=== PATIENT | female | born 1980 | race Two or more races ===

== ENCOUNTER 2024-08-06 21:06 | Emergency (ER) | payer OTHER, MEDICAID ==
[~2024-08-06] VITALS: Ht 165.1 cm; Wt 63.6 kg
--- NOTE | 2024-08-06 21:45 | ED.PDOC ---
Psychiatric HPI Comments 43 Y F ASHLEIGH with PMHX of schizophrenia, depression, and bipolar disorder presents to the ED with CC of hallucinations. Per EMS, patient [place] following a call from SO due to patient having visual and auditory hallucinations. Per EMS, patient states that she "saw her daughter ". Patient was previously seen at [facility] in [place], [place] for similar symptoms. Patient denies SI or HI. Chief Complaint: Hallucinations Time Seen by MD: 21:30 Reviewed Notes: Nurses Notes, Toddler Lead Teacher Notes, Medications, Allergies Information Source: Patient Mode of Arrival: EMS Severity: Unable to Control Self Severity of Pain: None Severity of Mental Status: None Severity of Symptoms: None Timing: Hours Duration: Since onset Prehospital treatment: None Presents with: Unclear Thinking Ingestion: None Circumstance: None Current substance abuse: None Stressors: None History of: Depression, Schizophrenia Quality: Hallucinations Location: None Associated signs and symptoms: Hallucinations Past Medical History PAST MEDICAL HISTORY: Depression, Schizophrenia Past Medical History (Other): BIPOLAR DISORDER Surgical History: Denies all surgeries STEVEDORING SUPERINTENDENT History: Denies all STEVEDORING SUPERINTENDENT Hx Family History Family History: Unknown Social History Smoker: Non-Smoker Alcohol: Denies ETOH Use Drugs: Denies Drug Use Lives In: Home Unable to Obtain due to: Altered Mental Status Physical Exam General Appearance: No Apparent Distress, Normal HEENT: Normal ENT Inspection, Pharynx Normal, TMs Normal Neck: Full Range of Motion, Non-Tender, Normal, Normal Inspection Respiratory: Chest Non-Tender, Lungs Clear, No Accessory Muscle Use, No Respiratory Distress, Normal Breath Sounds Cardiovascular: No Edema, No JVD, No Murmur, No Gallop, Normal Peripheral Pulses, Regular Rate/Rhythm Breast Exam: Deferred Gastrointestinal: No Organomegaly, Non Tender, No Pulsatile Mass, Normal Bowel Sounds, Soft Genitalia: Deferred Pelvic: Deferred Rectal: Deferred Extremities: No calf tenderness, Normal capillary refill, Normal inspection, Normal range of motion, Non-tender, No pedal edema Musculoskeletal : Apperance: Normal Neurologic: Alert, swimming professor II-XII nml as Tested, No Motor Deficits, Normal Affect, Normal Mood, No Sensory Deficits Cerebellar Function: Normal Reflexes: Normal Skin: Dry, Normal Color, Warm Lymphatic: No Adenopathy Was a procedure done? Was a procedure done?: No Psych Differential Dx Psych. Differential Dx: Bipolar Disorder, Depression, Schizoprenia, Sleepless OD Differential Dx: Alcohol Abuse Suicidal Differential Dx: Substance Abuse X-Ray, Labs, Meds, VS Vital Signs Date Time Temp Pulse Resp B/P (MAP) Pulse Ox O2 Delivery O2 Flow Rate FiO2 08/06/24 23:38 98.0 106 19 131/84 (100) 97 98.0 08/06/24 21:16 98.2 85 21 134/91 (105) 98 Lab Test 08/06/24 23:24 Range/Units White Blood Count 11.1 H 4.4-10.8 10^3/uL Red Blood Count 4.70 4.0-5.20 10^6/uL Hemoglobin 10.8 L 12.2-16.2 g/dL Hematocrit 35.0 L 36.0-46.0 % Mean Corpuscular Volume 74.5 L 80.0-100.0 fL Mean Corpuscular Hemoglobin 23.0 L 28.0-32.0 pg Mean Corpuscular Hemoglobin Concent 30.9 L 32.0-36.0 g/dL Red Cell Distribution Width 19.4 H 11.8-14.3 % Platelet Count 360 140-450 10^3/uL Mean Platelet Volume 6.7 L 6.9-10.8 fL Neutrophils (%) (Auto) 63.5 37.0-80.0 % Lymphocytes (%) (Auto) 26.9 10.0-50.0 % Monocytes (%) (Auto) 7.4 0.0-12.0 % Eosinophils (%) (Auto) 1.4 0.0-7.0 % Basophils (%) (Auto) 0.8 0.0-2.0 % Neutrophils # (Auto) 7.1 1.6-8.6 10 ^3/uL Lymphocytes # (Auto) 3.0 0.4-5.4 10 ^3/uL Monocytes # (Auto) 0.8 0-1.3 10 ^3/uL Eosinophils # (Auto) 0.2 0-0.8 10 ^3/uL Basophils # (Auto) 0.1 0-0.2 10 ^3/uL Nucleated Red Blood Cells 0.1 % Sodium Level 140 136-145 mmol/L Potassium Level 3.6 3.5-5.1 mmol/L Chloride Level 107 98-107 mmol/L Carbon Dioxide Level 25 20-31 mmol/L Anion Gap 8 5-15 Blood Urea Nitrogen 10 9-23 mg/dL Creatinine 0.91 0.550-1.02 mg/dL Glomerular Filtration Rate Calc 81 >90 mL/min BUN/Creatinine Ratio 11.0 10.0-20.0 Serum Glucose 114 H 74-106 mg/dL Calcium Level 10.2 8.7-10.4 mg/dL Total Bilirubin 0.4 0.2-1.0 mg/dL Aspartate Amino Transferase (AST) 18 13-40 U/L Alanine Aminotransferase (ALT) 25 7-40 U/L Alkaline Phosphatase 92 46-116 U/L Ammonia 11 11-32 umol/L Total Protein 8.0 5.7-8.2 g/dL Albumin 4.6 3.2-4.8 g/dL X-Ray, Labs, Meds, VS Comment Pending psychiatric consult Time of 1ST Reevaluation: 22:00 Reevaluation 1ST: Unchanged Patient Education/Counseling: Diagnosis, Treatment Family Education/Counseling: No Family Present Assigned to Dr. valencia Change of Shift?: Yes Departure 1 Departure Time of Disposition: 01:54 Impression: Primary Impression: Schizophrenia Qualified Codes: F20.1 - Disorganized schizophrenia Additional Impressions: Depression Qualified Codes: F33.3 - Major depressive disorder, recurrent, severe with psychotic symptoms Bipolar 1 disorder, mixed, moderate Disposition: 30 STILL A PATIENT Condition: Stable Critical Care Note Critical Care Time?: No Stability Stability form required: No Heart Score Heart Score: Heart Score Response (Comments) Value History N/A 0 EKG N/A 0 Age N/A 0 Risk Factors N/A 0 Troponin N/A 0 Total 0 I personally scribed for ANA EDMONDS WIND TURBINE ERECTOR ([email or web address]) on 08/06/24 at 21:45. Electronically submitted by Dena Fuchs ([email or web address]). I personally scribed for ANA EDMONDS WIND TURBINE ERECTOR ([email or web address]) on 08/06/24 at 21:47. Electronically submitted by Dena Fuchs ([email or web address]). ANA EDMONDS WIND TURBINE ERECTOR Aug 06, 2024 21:45
[2024-08-06 23:31] LABS: Basophils # (auto) 0.1 10 ^3/uL (0-0.2); Red Cell Distribution Width 19.4 % (11.8-14.3)
[2024-08-06 23:33] LABS: Basophils % (auto) 0.8 % (0.0-2.0); Eosinophils # (auto) 0.2 10 ^3/uL (0-0.8); Eosinophils % (auto) 1.4 % (0.0-7.0); Hemoglobin 10.8 g/dL (12.2-16.2); Lymphocytes % (auto) 26.9 % (10.0-50.0); Mean Corpuscular Hgb Conc. 30.9 g/dL (32.0-36.0); Mean Corpuscular Volume 74.5 fL (80.0-100.0); Monocytes # (auto) 0.8 10 ^3/uL (0-1.3); Monocytes % (auto) 7.4 % (0.0-12.0); Neutrophils # (auto) 7.1 10 ^3/uL (1.6-8.6); Neutrophils % (auto) 63.5 % (37.0-80.0); Nucleated Red Blood Cells % 0.1 %; Platelet Count (auto) 360 10^3/uL (140-450); White Blood Cell 11.1 10^3/uL (4.4-10.8)
[2024-08-06 23:38] VITALS: BP 131/84; PULSE 106; RESP 19; TEMP 98; O2SAT 97
--- NOTE | 2024-08-06 23:40 | DVH ---
CLINICAL HISTORY: aloc TECHNIQUE: Helical imaging carried out from skull base to vertex without intravenous contrast. This e xam was performed according to our departmental dose optimization program. Up-to-date CT equipment an d radiation dose reduction techniques are utilized as appropriate. CTDIVol: [CTDIvol] mGy DLP: 851.34 mGy-cm WID: COMPARISON: None FINDINGS: The ventricles and subarachnoid spaces are normal in size and configuration. There is no midline sixto ft or mass effect. The beck white matter interfaces are maintained. The basal cisterns are patent. Th ere is no evidence of acute intracranial hemorrhage or extra-axial fluid collection. The mastoid air cells and visualized paranasal sinuses are well-aerated. IMPRESSION: No acute intracranial abnormality.
[2024-08-06 23:52] LABS: Alanine Aminotransferase 25 U/L (7-40); Albumin 4.6 g/dL (3.2-4.8); Alkaline Phosphatase 92 U/L (46-116); Anion Gap 8 (5-15); Aspartate Aminotransferase 18 U/L (13-40); Bilirubin, Total 0.4 mg/dL (0.2-1.0); Blood Urea Nitrogen 10 mg/dL (9-23); Calcium 10.2 mg/dL (8.7-10.4); Carbon Dioxide 25 mmol/L (20-31); Potassium 3.6 mmol/L (3.5-5.1); Sodium 140 mmol/L (136-145)
[2024-08-06 23:54] LABS: Chloride 107 mmol/L (98-107); Glucose 114 mg/dL (74-106)
--- NOTE | 2024-08-07 02:32 | DVHINCON2 ---
Date of Service if different f: Aug 07, 2024 Time of Service: 02:30 Consult Consult Note PSYCHIATRY ED NEW CONSULT HPI: 43 yo F pt with PPH of schizoaffective disorder presents to ED BIBA for safety, psychiatric stabilization and possible med initiation/optimization in setting of AVH. Psychiatry consulted for safety evaluation and recommendations in context of current presentation Per pt, reports earlier today started experiencing vague NC/NT AVH including "i saw my daughter , she was drinking and driving, something is wrong with my head, i see all my friends dying, can you please find my daughter?", also c/o poor sleep, paranoia, increased anxiety, emotional dysregulation, appears confused, loose TP, and distraught. Denies SI/HI. Pt currently does not have psychiatrist/therapist out in community although has sought outpt MH services in past. Currently rx'd quetiapine 200 mg bid but recently ran out of med several weeks ago possibly resulting in above symptoms. Denies ETOH, THC or IDU prior to admission, unclear if pt has hx of THC or IDU, UDS pending Never , ?one adult daughter, unemployed, chronically homeless, no legal issues, no/limited support system noted. Unknown trauma hx. Unknown FH. No acute medical issues, hx of seizures/TBI, or recent head injuries, NKDA Does not have hx of suicide attempts or SIB/PSG. Pt w/prior psych hospitalizations for psychosis including recent admission last month. Denies history of violence, unprovoked aggression, or assaultive behaviors. Does not have access to firearms. Currently denies SI/HI. No safety concerns noted during encounter. MSE: General Appearance/Behavior: Alert and awake; appears stated age, well developed, somewhat disheveled, calm and cooperative although at times distraught/tearful, intermittent eye contact, no PMA/PMR Speech: incoherent at times, soft spoken Thought Process: linear, limited, perseverative on daughter Thought Content: Abnormal Thoughts and Perceptions: possibly Homicidality / Violent Thoughts: None Suicidality: adamantly denies SI Hallucinations: + AVH Delusions: paranoia Obsessions /compulsions : None Judgment and Insight: limited/poor Mood & Affect: "anxious" with mood-congruent, tearful Orientation: oriented to person, place, time Attention/Concentration: appears intact Memory: grossly intact Language: no unusual or inappropriate language Assessment: 43 yo F pt with PPH of ?schizoaffective disorder presents to ED BIBA for safety, psychiatric stabilization and possible med initiation/optimization in setting of AVH. Currently denies SI/HI but appears paranoid, psychotic, emotional dysregulated, confused, loose TP, and distraught. Pt medically cleared in ED. UDS pending No protective factors presently. Not on any psychotropics for past several weeks which maybe contributing to current symptoms. No outpt MH services at present Pt will benefit from inpatient psychiatric admission for safety, psychiatric stabilization and possible medication initiation/optimization. Pt willing to transfer to inpt psych hospitalization voluntarily Primary Diagnosis: Psychotic disorder unspecified Recommend vol transfer to inpt psych facility for higher level of care per pts request 1:1 sitter is recommended Obtain collateral info from external sources if/when available Recommend restarting outpt med - quetiapine 200 mg bid - first dose now Risks/benefits/alternative treatments discussed, informed consent provided by pt If patient later refuses voluntary hospitalization/ requests to be discharged from ED prior to transfer or if no voluntary beds are available, please recon sult telepsych services to evaluate for 5150 hold. Pt verbalized understanding and is receptive to above tx plan This case was discussed with ED nurse/provider and all parties in agreement with above tx plan Tyler Mares MD Plan discussed with: Patient TYLER MARES MD Aug 07, 2024 02:32
== END 2024-08-07 10:49 | disposition left against medical advice (07) ==
LOC: EDBD 21:06 → ER 21:06
DX: F20.9 Schizophrenia, unspecified (principal); F31.62 Bipolar disorder, current episode mixed, moderate
CPT/HCPCS: 36415; 70450; 80053; 82140; 85025

== ENCOUNTER 2024-12-31 15:04 | Emergency (ER) | payer OTHER, MEDICAID ==
[~2024-12-31] VITALS: Ht 162.6 cm; Wt 72.3 kg
[~2024-12-31 15:04] MED LIST: BACDST PO; DOXY-286 PO
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
--- NOTE | 2024-12-31 16:47 | DVH ---
CLINICAL INDICATION: fall. r/o fracture TECHNIQUE: 3 radiographic views of the right ankle were obtained. Comparison: None FINDINGS/IMPRESSION: Nondisplaced fracture tip of the distal fibula. Soft tissue swelling around the right ankle The visualized joint space is well maintained. The alignment is anatomical. There is no radiopaque foreign body.
[2024-12-31] MEDS ORDERED: IBUP1TAB5 PO (17:05)
[2024-12-31 17:17] VITALS: BP 110/89; PULSE 88; RESP 18; TEMP 98.7; O2SAT 98
== END 2024-12-31 17:20 | disposition home or self-care (01) ==
LOC: ER 15:04
DX: S82.831A Other fracture of upper and lower end of right fibula, initial encounter for closed fracture (principal); F20.9 Schizophrenia, unspecified; Z59.00 Homelessness unspecified; X58.XXXA Exposure to other specified factors, initial encounter; Y93.89 Activity, other specified; Y92.89 Other specified places as the place of occurrence of the external cause; Y99.8 Other external cause status
CPT/HCPCS: 29515; 73610